=== PATIENT | male | born 1970 | race American Indian/Alaskan Native ===

== ENCOUNTER 2017-07-17 15:00 | Emergency (ER) | payer MEDICARE ==
[2017-07-18] MEDS ORDERED: DDAVP 30 MCG in NACL 0.9% 50 ML IV ONE (00:05)
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
[2017-07-18 02:27] VITALS: BP 124/80
--- NOTE | 2017-07-18 11:28 | XRay Report ---
AP CHEST: HISTORY: Shortness of breath Comment: This examination is just presented to me for interpretation. AP view of the chest demonstrates a normal mediastinal and cardiac contour with clear lungs and normal bony and soft tissue structures. A right IJ dual-lumen catheter terminates at the cavoatrial junction. IMPRESSION: No acute cardiopulmonary process.
[2017-07-18 12:52] LABS: Sodium 141 mmol/L (137-145)
[2017-07-18 12:53] LABS: Alanine Aminotransferase 5 units/L (7-56); Albumin/Globulin Ratio 1.8 %; Alkaline Phosphatase 133 units/L (35-129); Anion Gap 25 mmol/L; BUN/Creatinine Ratio 5.61; Blood Urea Nitrogen 73 mg/dL (9-20); Carbon Dioxide 23 mmol/L (22-30); Glucose 73 mg/dL (75-100); Potassium 4.7 mmol/L (3.6-5.0); Total Protein 6.2 g/dL (6.3-8.2)
[2017-07-18 13:17] LABS: Basophils % (Auto) 0.9 % (0.0-1.8); Eosinophils % (Auto) 1.6 % (0.0-4.3); Hemoglobin 10.4 gm/dl (11.8-15.2); Mean Corpuscular HGB Conc 32 % (32-34); Mean Corpuscular Hemoglobin 27 pg (28-32); Mean Corpuscular Volume 84 fl (84-94); Platelet Count 202 K/mm3 (140-440); Red Blood Count 3.84 M/mm3 (3.65-5.03); Red Cell Distribution Width 14.1 % (13.2-15.2); White Blood Count 6.1 K/mm3 (4.5-11.0)
[2017-07-18 13:18] LABS: INR 1.01 (0.87-1.13); Partial Thromboplastin Time 29.7 Sec. (24.2-36.6)
== END 2017-07-18 02:26 | disposition home or self-care (01) ==
LOC: ED 15:00
DX: T82.49XA Other complication of vascular dialysis catheter, initial encounter (principal); I12.0 Hypertensive chronic kidney disease with stage 5 chronic kidney disease or end stage renal disease; N18.6 End stage renal disease; I50.9 Heart failure, unspecified; F17.210 Nicotine dependence, cigarettes, uncomplicated
CPT/HCPCS: 36415; 71010; 80053; 85025; 85610; 85730; 96365; 99283; A6021; J2597